=== PATIENT | male | born 1950 | race Caucasian/White ===

== ENCOUNTER 2016-09-06 13:11 | Outpatient (RCR) | payer MEDICARE ==
--- OUTSIDE RECORDS SUMMARY | 2016-08-09 12:42 | XMS REPORT | Continuity of Care Document ---
Author Author [facility] Organization [facility] Address Unknown Phone Unavailable Care Team Providers Care Lead Principal Technical Architect Name Role Phone ADIN ONEAL MD PCP Insurance Providers Payer Name Policy Number Subscriber Name Relationship Wps Medicare [id number] Lj Mckoy 18 Self / Same As Patient [facility] [id number] Lj Mckoy 18 Self / Same As Patient Advance Directives Directive Response Recorded Date/Time Advance Directives No 05/22/14 3:14pm Health Care Power of Engineering Lab Technician No 05/22/14 3:14pm Organ Donor No 05/22/14 3:14pm Resuscitation Status Full Code 05/22/14 3:14pm Problems Medical Problems Problem Onset Date Status Post-op pain Unknown Active Post-op pain Unknown Active Medications Medication Dose Route Sig Days/Qty Instructions Order Date Discontinued Date Status Escitalopram Oxalate 05/09/08 06/25/09 Discontinued Metoprolol Succinate 05/09/08 06/25/09 Discontinued Gabapentin 800 Mg PO THREE TIMES A DAY 06/25/09 09/12/13 Discontinued Docusate Sodium 100 Mg PO NEEDED 06/25/09 06/19/12 Discontinued Polyethylene Glycol 06/25/09 07/09/09 Discontinued Clonidine HCl 06/25/09 03/24/11 Discontinued Citalopram Hydrobromide 30 Mg PO DAILY TAKES 1 AND 1/2 (20 MG) TABLET 06/25/09 Active Metoprolol Tartrate 50 Mg PO TWICE A DAY 06/25/09 Active Amlodipine Besylate (Norvasc 5 Mg) 5 Mg PO DAILY 06/25/09 Active Acetaminophen With Codeine 06/25/09 07/09/09 Discontinued Trimethoprim/Sulfamethoxazole 1 Each PO TWICE A DAY 20 Qty 06/25/09 Discontinued Insulin Glulisine 7 Units SQ WITH MEALS 07/09/09 06/19/12 Discontinued Acetaminophen With Codeine 1 Tab PO NEEDED 07/09/09 06/19/12 Discontinued Polyethylene Glycol 1 Pkt PO NEEDED 07/09/09 06/19/12 Discontinued Insulin Glargine 20 Units SQ BEDTIME 03/25/11 Active Clopidogrel Bisulfate 75 Mg PO DAILY 06/11/11 05/24/14 Discontinued Insulin Human Lispro 6 Unit SQ THREE TIMES A DAY BEFORE MEALS Active Nystatin (Mycostatin Oral Suspension) 5 Ml PO FOUR TIMES DAILY 11/06/12 Discontinued Acetaminophen/Hydrocodone Bitart 1 - 2 Ea PO Q 4 - 6 HR PRN 30 Qty 05/0811/06/12 Discontinued Fluconazole 1 Each PO DAILY 10 Qty 07/06/12 11/06/12 Discontinued Linezolid 1 Tab PO TWICE A DAY 28 Qty 07/06/12 11/06/12 Discontinued Doxycycline Hyclate 200 Mg PO TWICE A DAY 10 Days 07/06/12 11/06/12 Discontinued Gabapentin 800 Mg PO THREE TIMES A DAY 09/12/13 Active Docusate Sodium 100 Mg PO DAILY 09/12/13 04/20/14 Discontinued Polyethylene Glycol 17 Gm PO BEDTIME PRN CONSTIPATION 05/23/14 Active Docusate Sodium 100 Mg PO DAILY PRN CONSTIPATION 05/23/14 Active [Prasugrel Hydrochloride] 10 Mg PO DAILY 05/24/14 Active Social History Social History Problem Response Recorded Date/Time Alcohol Use Occasionally Uses 04/20/2014 1:05pm Recreational Drug Use No 04/20/2014 1:05pm Smoking Status Former Smoker 05/22/2014 3:14pm Query Response Start Date Stop Date Smoking Status Former Smoker 05/22/2008 Hospital Discharge Instructions No hospital discharge instructions. Plan of Care Discharge Date 05/24/14 11:55am Disposition 01 HOME, SELF-CARE Instructions/Education Provided CARDIAC CATH DISCHARGE INSTRUC Forms Provided Follow-Up Fax Prescriptions See Medications Section Referrals (Unspecified) Care Plan and Goals to my office Monday morning Patient given a prescription for Effient Functional Status Query Response Date Recorded Patient Orientation Person Place Time Situation May 24, 2014 2:45pm Comprehension Ability Understands Concepts May 24, 2014 8:45am Allergies, Adverse Reactions, Alerts Allergen Type Severity Reaction Status Last Updated No Known Drug Allergies Active 05/09/08 Immunizations Name Given Type Date of Pneumonia Vaccine 05/29/12 Historical Date of Influenza Vaccine 06/08/13 Historical influenza, split (incl. purified surface antigen) 05/24/14 Administered influenza, split (incl. purified surface antigen) 05/24/14 Administered Vital Signs Acute Vital Signs Vital Response Date/Time Temperature (Fahrenheit) 98.4 degrees F (97.6 - 99.5) Temperature (Calculated Celsius) 36.91101 degrees C (36.4 - 37.5) Temperature Source Tympanic Pulse Rate (adult) 76 bpm (60 - 90) Respiratory Rate 20 bpm (12 - 24) O2 Sat by Pulse Oximetry 95 % (88 - 100) Blood Pressure 159/81 mm Hg Pain Pain Intensity 0 Height (Feet) 5 feet Height (Inches) 10.00 inches Height (Calculated Centimeters) 177.810447 cm Weight (Pounds) 218 pounds Weight (Ounces) 2.0 oz Weight (Calculated Grams) 92748.837 gm Weight (Calculated Kilograms) 98.138946 kilograms Calculated BMI 30.85 Results Test Source Date Result Interp. Ref. Range Comments Absolute Reticulocyte Count May 29, 2008 5:15am 34 10^3/uL N 22-82 Activated Partial Thromboplast Time April 20, 2014 2:07pm 27 SEC N 24- 35 Alanine Aminotransferase (ALT/SGPT) September 12, 2013 7:13am 47 U/L N 30- 65 Albumin September 12, 2013 7:13am 3.3 G/DL L 3.4-5.0 Alkaline Phosphatase September 12, 2013 7:13am 143 U/L H 50-136 Gio Test June 13, 2008 5:40am Yes-pos - Puncture site: R RADIALAllen's Test: POSITIVE Temperature: 101 Room Air: N Liters of O2: 40% Ventilator: Y Ammonia June 17, 2008 5:50am 36 UMOL/L - Amylase Level June 06, 2008 9:15am 24 U/L L 25-115 SPECIMEN IS FROM THE CJ DRAIN, NORMALS ARE FOR SERUM ONLY Anisocytosis June 04, 2008 6:05pm Slight - Arterial Blood Base Excess June 13, 2008 5:40am 3.5 MMOL/L H -2.5- 2.5 Puncture site: R RADIALAllen's Test: POSITIVE Temperature: 101 Room Air: N Liters of O2: 40% Ventilator: Y Arterial Blood HCO3 June 13, 2008 5:40am 27 MMOL/L N 23-27 Puncture site: R RADIALAllen's Test: POSITIVE Temperature: 101 Room Air: N Liters of O2: 40% Ventilator: Y Arterial Blood Oxygen Saturation June 13, 2008 5:40am 97 % N 94-100 Puncture site: R RADIALAllen's Test: POSITIVE Temperature: 101 Room Air: N Liters of O2: 40% Ventilator: Y Arterial Blood Partial Pressure CO2 June 13, 2008 5:40am 41 MMHG N 35 -45 Puncture site: R RADIALAllen's Test: POSITIVE Temperature: 101 Room Air: N Liters of O2: 40% Ventilator: Y Arterial Blood Partial Pressure O2 June 13, 2008 5:40am 90 MMHG N 79- 93 Puncture site: R RADIALAllen's Test: POSITIVE Temperature: 101 Room Air: N Liters of O2: 40% Ventilator: Y Arterial Blood Total CO2 June 13, 2008 5:40am 28.5 MMOL/L N 21.0- 31.0 Puncture site: R RADIALAllen's Test: POSITIVE Temperature: 101 Room Air: N Liters of O2: 40% Ventilator: Y Arterial Blood pH June 13, 2008 5:40am 7.45 H 7.37-7.43 Puncture site: R RADIALAllen's Test: POSITIVE Temperature: 101 Room Air: N Liters of O2: 40% Ventilator: Y Aspartate Amino Transf (AST/SGOT) September 12, 2013 7:13am 17 U/L N 15- 37 B-Type Natriuretic Peptide May 28, 2008 2:44am 1010.0 PG/ML H 5.0- 100.0 BUN/Creatinine Ratio April 20, 2014 2:07pm 10 - Band Neutrophils September 24, 2008 6:53am 4 % - Basophils # (Auto) April 20, 2014 2:07pm 0.0 10^3/uL N 0.0-0.1 Basophils % (Manual) September 24, 2008 6:53am 0 % - Basophils (%) (Auto) April 20, 2014 2:07pm 1 % N 0-10 Blood Gas Inspired Oxygen June 13, 2008 5:40am 40% - Puncture site : R RADIALAllen's Test: POSITIVE Temperature: 101 Room Air: N Liters of O2: 40% Ventilator: Y Blood Gas Patient Temperature June 13, 2008 5:40am 101.0 - Puncture site: R RADIALAllen's Test: POSITIVE Temperature: 101 Room Air: N Liters of O2: 40% Ventilator: Y Blood Gas Puncture Site June 13, 2008 5:40am Rt rad - Puncture site: R RADIALAllen's Test: POSITIVE Temperature: 101 Room Air: N Liters of O2: 40% Ventilator: Y Blood Gas Ventilator Setting June 13, 2008 5:40am Yes - Puncture site: R RADIALAllen's Test: POSITIVE Temperature: 101 Room Air: N Liters of O2: 40% Ventilator: Y Blood Urea Nitrogen April 20, 2014 2:07pm 10 MG/DL N 7-18 Calcium Level April 20, 2014 2:07pm 9.9 MG/DL N 8.5-10.1 Carbon Dioxide Level April 20, 2014 2:07pm 22 MMOL/L N 21-32 Carboxyhemoglobin April 30, 2008 4:00pm 11.3 % H 0.5-2.5 REFERENCE RANGE=0.5% - 2.5% SMOKERS=0.5% - 6.0% TOXIC LEVELS=>10% Chloride Level April 20, 2014 2:07pm 106 MMOL/L N 98-107 Cholesterol Level March 27, 2011 6:20am 162 MG/DL N -200 Creatinine April 20, 2014 2:07pm 1.05 MG/DL N 0.60-1.30 D-Dimer May 27, 2008 10:00am 4.72 UG/ML H 0.00-0.49 Direct Bilirubin May 27, 2008 10:00am 2.6 MG/DL H 0.0-0.30 Eosinophils # (Auto) April 20, 2014 2:07pm 0.2 10^3/uL N 0.0-0.3 Eosinophils % (Manual) September 24, 2008 6:53am 2 % - Eosinophils (%) (Auto) April 20, 2014 2:07pm 3 % N 0-10 Fibrinogen May 27, 2008 10:00am 617 MG/DL H 221-496 Glucose Level April 20, 2014 2:07pm 97 MG/DL N 70-105 HDL Cholesterol March 27, 2011 6:20am 38 MG/DL N 35-60 Haptoglobin May 28, 2008 11:37am 208.7 h MG/DL - Hematocrit April 20, 2014 2:07pm 41 % N 40-54 Hemoglobin April 20, 2014 2:07pm 14.0 G/DL N 13.3-17.7 Hemoglobin A1c November 19, 2013 1:00pm 7.3 % H 4.5-6.2 Comments to Armored Machine Operator: lian 18Specimen Comment: drawn by rn Indirect Bilirubin May 27, 2008 10:00am 0.9 MG/DL - Iron Level June 27, 2008 6:30am 65 UG/DL N 50-175 LDL Cholesterol March 27, 2011 6:20am 83 MG/DL N 0-129 Lactate Dehydrogenase May 30, 2008 5:30am 185 U/L N 100-190 Lactic Acid Level June 08, 2008 5:30am 0.9 MMOL/L N 0.4-2.0 Lipase June 06, 2008 9:15am 141 U/L N 114-286 SPECIMEN IS FROM CJ DRAIN,NORMALS ARE FOR SERUM ONLY Lymphocytes # (Auto) April 20, 2014 2:07pm 1.4 X 10^3 N 1.0-4.0 Lymphocytes % (Manual) September 24, 2008 6:53am 13 % - Lymphocytes (%) (Auto) April 20, 2014 2:07pm 19 % N 12-44 Macrocytosis June 04, 2008 6:05pm Slight - Magnesium Level June 26, 2012 5:55am 2.0 MG/DL N 1.8-2.4 Mean Corpuscular Hemoglobin April 20, 2014 2:07pm 32 PG N 25-34 Mean Corpuscular Hemoglobin Concent April 20, 2014 2:07pm 35 G/DL N 32- 36 Mean Corpuscular Volume April 20, 2014 2:07pm 92 FL N 80-99 Mean Platelet Volume April 20, 2014 2:07pm 9.7 FL N 7.4-10.4 Monocytes # (Auto) April 20, 2014 2:07pm 0.7 X 10^3 N 0.0-1.0 Monocytes % (Manual) September 24, 2008 6:53am 10 % - Monocytes (%) (Auto) April 20, 2014 2:07pm 10 % N 0-12 Neutrophils # (Auto) April 20, 2014 2:07pm 5.1 X 10^3 N 1.8-7.8 Neutrophils % (Manual) September 24, 2008 6:53am 71 % - Neutrophils (%) (Auto) April 20, 2014 2:07pm 69 % N 42-75 Nucleated Red Blood Cells June 04, 2008 6:05pm 6 - Percent Reticulocyte Count May 29, 2008 5:15am 1.01 % N 0.50-2.40 Phosphorus Level June 09, 2008 5:50am 5.2 MG/DL H 2.5-4.9 Platelet Count April 20, 2014 2:07pm 324 10^3/uL N 130-400 Poikilocytosis May 27, 2008 5:25am Slight - Polychromasia June 04, 2008 6:05pm Slight - Potassium Level April 20, 2014 2:07pm 4.4 MMOL/L N 3.6-5.0 Prealbumin May 31, 2008 9:30am 11.2 MG/DL L 18.0-35.7 Has specimen been collected/obtained? YComments to Armored Machine Operator: USE THIS AM BLOOD Prostate Specific Antigen August 10, 2009 10:15am 0.69 NG/ML - PRINT TO CCRPT5 NOW!!!! Prothromb Time International Ratio November 06, 2012 8:32am 0.8 N 0.8-1.4 INTERPRETIVE DATASUGGESTED THERAPEUTIC RANGE FOR INR'S: VENOUS THROMBOSIS, PULMONARY EMBOLISM, OR PREVENTION OF SYSTEMIC EMBOLISM (EG. IN ATRIAL FIBRILLATION): 2.0 - 3.0 MECHANICAL PROSTHETIC HEART VALVES: 2.5 - 3.5* *NOTE: INR'S UP TO 4.5 MAY BE NECESSARY IN SELECTED GROUPS OF HIGH RISK PATIENTS. [employer] CONSENSUS CONFERENCE ON ANTITHROMBOTIC THERAPY (2000). Prothrombin Time April 20, 2014 2:07pm 12.7 SEC N 12.2-14.7 Random Tobramycin Level June 12, 2008 7:28am 10.0 MG/L - INTERPRETIVE DATADESIRED AMINOGLYCOSIDE LEVELS DEPEND VERY MUCH ON THE ORGANISM UNDER TREATMENT AND THE ORGAN BEING TREATED. ONCE DAILY DOSING (ODD) IS ADVISED FOR MOST INDICATIONS. MULTIPLE DAILY DOSING (MDD) MAY BE OPTIMAL FOR ENDOCARDITIS. USUAL RECOMMENDED LEVELS FOR TOBRAMYCIN ARE: ODD PEAK (30 MIN AFTER INFUSION COMPLETE) 16-24 MG/L TROUGH (30 MIN BEFORE INFUSION STARTED)=<1 MG/L MDD PEAK (30 MIN AFTER INFUSION COMPLETE) 4-10 MG/L TROUGH (30 MIN BEFORE INFUSION STARTED) 1-2 MG/L REF: WEI FONTANA, HUSSEIN BARNHART. ANTIBACTERIAL THERAPY: ONCE-DAILY DOSING OF AMINOGLYCOSIDE ANTIBIOTICS. INFECT DIS CLIN [place] AM. 2000; 14(2):475-587; WEI DEY, MARY LOU RC ET.AL. THE [place] GUIDE TO ANTIMICROBIAL THERAPY. [address]TH ED. SHANE THOMPSON: ANTIMICROBIAL [employer]ER[employer] 2004:73.) 06/10/2005 Reactive Lymphocytes June 04, 2008 6:05pm 4 % - Red Blood Count April 20, 2014 2:07pm 4.42 10^6/uL N 4.35-5.85 Red Cell Distribution Width April 20, 2014 2:07pm 12.4 % N 10.0-14.5 Sodium Level April 20, 2014 2:07pm 140 MMOL/L N 135-145 Spherocytes May 27, 2008 5:25am Slight - Thyroid Stimulating Hormone (TSH) November 24, 2010 1:15pm 2.49 UIU/ML N 0.34-5.60 Total Bilirubin September 12, 2013 7:13am 0.3 MG/DL N 0.0-1.0 Total Protein September 12, 2013 7:13am 7.6 G/DL N 6.4-8.2 Triglycerides Level March 27, 2011 6:20am 205 MG/DL H 30.0-150.0 Troponin I May 31, 2008 9:30am < 0.10 NG/ML 0.00-0.10 Comments to Armored Machine Operator: PLEASE USE BLOOD ALREADY DRAWN Urine Amorphous Sediment November 06, 2012 8:43pm MOD PETE PHOSPHATE /LPF H - Has specimen been collected/obtained? YSpecimen Description VOID Urine Bacteria November 06, 2012 8:43pm FEW /HPF H - Has specimen been collected/obtained? YSpecimen Description VOID Urine Bilirubin November 06, 2012 8:43pm NEGATIVE - Has specimen been collected/obtained? YSpecimen Description VOID Urine Casts November 06, 2012 8:43pm NONE /LPF - Has specimen been collected/obtained? YSpecimen Description VOID Urine Clarity November 06, 2012 8:43pm very cloudy - Has specimen been collected/obtained? YSpecimen Description VOID Urine Coarse Granular Casts June 09, 2008 9:50pm Rare H - Has specimen been collected/obtained? YSpecimen Description CLEAN CATCH Urine Color November 06, 2012 8:43pm BROWN H - Has specimen been collected /obtained? YSpecimen Description VOID Urine Crystals November 06, 2012 8:43pm PRESENT /LPF H - Has specimen been collected/obtained? YSpecimen Description VOID Urine Culture Indicated November 06, 2012 8:43pm YES - Has specimen been collected/obtained? YSpecimen Description VOID Urine Glucose (UA) November 06, 2012 8:43pm NEGATIVE - Has specimen been collected/obtained? YSpecimen Description VOID Urine Ketones November 06, 2012 8:43pm TRACE H - Has specimen been collected/obtained? YSpecimen Description VOID Urine Leukocyte Esterase November 06, 2012 8:43pm 1+ H - Has specimen been collected/obtained? YSpecimen Description VOID Urine Mucus November 06, 2012 8:43pm NEGATIVE /LPF - Has specimen been collected/obtained? YSpecimen Description VOID Urine Nitrite November 06, 2012 8:43pm POSITIVE H - Has specimen been collected/obtained? YSpecimen Description VOID Urine Protein November 06, 2012 8:43pm 3+ H - Has specimen been collected/ obtained? YSpecimen Description VOID Urine RBC November 06, 2012 8:43pm RARE /HPF - MICROSCOPIC EXAM ON UNSPUN SPECIMEN Urine Random Chloride June 15, 2008 1:40pm 82 MMOL/L L 110-250 Has specimen been collected/obtained? Y Urine Random Potassium June 15, 2008 1:40pm 50 MMOL/L N 25-125 Has specimen been collected/obtained? Y Urine Random Sodium June 15, 2008 1:40pm 64 MMOL/L N 50-200 Has specimen been collected/obtained? Y Urine Specific [place] November 06, 2012 8:43pm 1.010 L - Has specimen been collected/obtained? YSpecimen Description VOID Urine Squamous Epithelial Cells November 06, 2012 8:43pm RARE /HPF - Has specimen been collected/obtained? YSpecimen Description VOID Urine Urobilinogen November 06, 2012 8:43pm 4 MG/DL H - Has specimen been collected/obtained? YSpecimen Description VOID Urine WBC November 06, 2012 8:43pm 0-2 /HPF - Has specimen been collected/obtained? YSpecimen Description VOID Urine pH November 06, 2012 8:43pm 7 - DIPSTICK RESULTS MAY NOT BE ACCURATE DUE TO COLORINTERFERENCE VLDL Cholesterol March 27, 2011 6:20am 41 MG/DL H 5-40 Vancomycin Level Trough June 08, 2008 6:00pm 18.0 MCG/ML N 10-20 White Blood Count April 20, 2014 2:07pm 7.5 10^3/uL N 4.3-11.0 Pathology Consult Specimen May 26, 2008 10:41am See report - Glucometer April 12, 2014 6:51am 143 MG/DL H 70-110 Lab Scanned Report July 04, 2012 1:11pm Transfusion Reaction Form [id number] - Smear Scan June 04, 2008 5:20am Yes - SLIDE SCANNED FOR NRBC. 3 PER 100 WBC NOTED. VERIFIED BY SCAN OF SMEAR. Estimat Glomerular Filtration Rate April 20, 2014 2:07pm > 60 - GFR INTERPRETIVE DATA UNITS FOR ESTIMATED GFR (eGFR): mL/min/1.73 M2 REFERENCE RANGE FOR ESTIMATED GFR (eGFR) eGFR NORMAL eGFR >60 MODERATELY DECREASED eGFR 30-59 SEVERLY DECREASED eGFR 15-29 KIDNEY FAILURE <15 (OR DIALYSIS) Blood Morphology Comment September 24, 2008 6:53am Normal - Creatine Kinase May 26, 2008 10:28pm 21 mg/dl N 21-170 4+ LIPEMIC Stool Occult Blood Immunoassay June 29, 2008 3:30pm Positive H - Has specimen been collected/obtained? Y Urine RBC (Auto) November 06, 2012 8:43pm 4+ H - Has specimen been collected/obtained? YSpecimen Description VOID INR Comment April 20, 2014 2:07pm 1.0 N 0.8-1.4 INTERPRETIVE DATASUGGESTED THERAPEUTIC RANGE FOR INR'S: VENOUS THROMBOSIS, PULMONARY EMBOLISM, OR PREVENTION OF SYSTEMIC EMBOLISM (EG. IN ATRIAL FIBRILLATION): 2.0 - 3.0 MECHANICAL PROSTHETIC HEART VALVES: 2.5 - 3.5* *NOTE: INR'S UP TO 4.5 MAY BE NECESSARY IN SELECTED GROUPS OF HIGH RISK PATIENTS. [employer] CONSENSUS CONFERENCE ON ANTITHROMBOTIC THERAPY (2000). Blood Culture Peripheral-Rt Ac April 11, 2014 7:28pm No growth Gram Stain Abdominal Fluid July 02, 2012 1:30pm Clostridium difficile Toxin A&B (M) Stool September 24, 2008 5:00pm Gram Stain Other-Cj Drain September 25, 2008 1:50pm MRSA Screen Nasal April 10, 2014 8:41am MRSA not isolated Urine Culture Urine-Voided Urine November 06, 2012 8:43pm NO GROWTH Gram Stain Body Site, Not Otherwise Spec.-Other July 23, 2012 4:15pm Procedures No known history of procedures. Encounters Encounter Location Date/Time Discharged Inpatient Via [facility] 05/22/14 5:53pm Discharged Recurring Via [facility] 02/19/14 1:42pm
[2016-08-09 12:59] VITALS: BP 140/78
[~2016-09-06] VITALS: Ht 175.3 cm; Wt 97.5 kg
[~2016-09-06 13:11] MED LIST: ACET1TAB12; ACET1TAB12 PO; AMLO5TAB2 PO; CITA20TA4 PO; CLON0.3T4; CLPD75T PO; DCS100C PO; DOCU100T7 PO; DOXY150T9 PO; ESCT10T; FLC100T1 PO; GABA800T PO; GBPN400C PO; HYDR-3583 PO; INSASP10V SQ; INSU100I10 SQ; INSU100I11 SQ; LNZ600T PO; MTP25TSR; MTP50T PO; NYST1000 PO; PEG250PW PO; POLY119P; POLY17PO23 PO; Prasugrel Hydrochloride PO; SULF1TAB35 PO
== END 2016-09-06 13:30 | disposition home or self-care (01) ==
LOC: SDC 13:11
PROVIDERS: ATTEND Internal Medicine
DX: I87.2 Venous insufficiency (chronic) (peripheral) (principal); Z45.2 Encounter for adjustment and management of vascular access device
CPT/HCPCS: 96523

== ENCOUNTER 2016-09-06 13:28 | Outpatient (RCR) | payer MEDICARE ==
[~2016-09-06] VITALS: Ht 175.3 cm; Wt 97.5 kg
--- OUTSIDE RECORDS SUMMARY | 2016-09-06 13:32 | XMS REPORT | Continuity of Care Document ---
Author Author [facility] Organization [facility] Address Unknown Phone Unavailable Care Team Providers Care Stacker Operator Name Role Phone ADIN ONEAL MD PCP Insurance Providers Payer Name Policy Number Subscriber Name Relationship Wps Medicare [id number] Lj Mckoy 18 Self / Same As Patient [facility] [id number] Lj Mckoy 18 Self / Same As Patient Advance Directives Directive Response Recorded Date/Time Advance Directives No 05/22/14 3:14pm Health Care Power of Surgical Elastic Knitter Hand Frame No 05/22/14 3:14pm Organ Donor No 05/22/14 [...] F (97.6 - 99.5) Temperature (Calculated Celsius) 36.39495 degrees C (36.4 - 37.5) Temperature Source Tympanic Pulse Rate (adult) 76 bpm (60 - 90) Respiratory Rate 20 bpm (12 - 24) O2 Sat by Pulse Oximetry 95 % (88 - 100) Blood Pressure 159/81 mm Hg Pain Pain Intensity 0 Height (Feet) 5 feet Height (Inches) 10.00 inches Height (Calculated Centimeters) 177.574115 cm Weight (Pounds) 218 pounds Weight (Ounces) 2.0 oz Weight (Calculated Grams) 54092.837 gm Weight (Calculated Kilograms) 98.225639 kilograms Calculated BMI 30.85 Results Test Source [...] 1:00pm 7.3 % H 4.5-6.2 Comments to Level Vial Inspector And Tester: lian 18Specimen Comment: drawn by rn Indirect [...] 18.0-35.7 Has specimen been collected/obtained? YComments to Level Vial Inspector And Tester: USE THIS AM BLOOD Prostate Specific Antigen [...] SELECTED GROUPS OF HIGH RISK PATIENTS. [employer] CONSENSUS CONFERENCE ON [...] WEI DEY, MARY LOU RC ET.AL. THE [place] GUIDE TO ANTIMICROBIAL THERAPY. [address]TH ED. SHANE [...] 9:30am < 0.10 NG/ML 0.00-0.10 Comments to Level Vial Inspector And Tester: PLEASE USE BLOOD ALREADY DRAWN Urine Amorphous [...] Has specimen been collected/obtained? Y Urine Specific [place] November 06, 2012 8:43pm 1.010 L - [...] July 04, 2012 1:11pm Transfusion Reaction Form [id number] - Smear Scan June 04, 2008 5:20am [...] SELECTED GROUPS OF HIGH RISK PATIENTS. [employer] [employer] CONSENSUS CONFERENCE ON [...] Encounters Encounter Location Date/Time Discharged Inpatient Via [facility] 05/22/14 5:53pm Discharged Recurring Via [facility] 02/19/14 1:42pm
[2016-09-06 13:39] VITALS: BP 134/70
[2016-09-15] MEDS ORDERED: MUPIROCIN 2% OINT 22 GM (BACTROBAN) TUBE ONE (08:28)
[2016-10-14] MEDS ORDERED: MIDAZOLAM SYRUP (VERSED) 10MG/5ML UDC PO ONE (07:37)
[2016-10-14] MEDS ORDERED: APAP 325 MG/10.15 ML LIQ (TYLENOL) UDC ONE (07:37)
== END 2016-09-06 13:30 | disposition home or self-care (01) ==
LOC: SDC 13:28
PROVIDERS: ATTEND Family Medicine
DX: Z45.2 Encounter for adjustment and management of vascular access device (principal)
CPT/HCPCS: 96523

== ENCOUNTER → 2016-10-25 | Outpatient (CLI) | payer MEDICARE ==
[~2016-10-25] VITALS: Ht 175.3 cm; Wt 97.5 kg
[~2016-10-25] MED LIST changes: +CYCL10TA9 PO; +HYOS0.1283 SL; +ONDA8TAB13 PO; +OXYC-188 PO; +TRAM50TA2 PO
--- OUTSIDE RECORDS SUMMARY | 2016-10-25 12:53 | XMS REPORT | Continuity of Care Document ---
Author Author [facility] Organization [facility] Address Unknown Phone Unavailable Care Team Providers Care Post Secondary Professional Name Role Phone ADIN ONEAL MD PCP Insurance Providers Payer Name Policy Number Subscriber Name Relationship Wps Medicare [id number] Lj Mckoy 18 Self / Same As Patient [facility] [id number] Lj Mckoy 18 Self / Same As Patient Advance Directives Directive Response Recorded Date/Time Advance Directives No 05/22/14 3:14pm Health Care Power of Almond Cutting Machine Tender No 05/22/14 3:14pm Organ Donor No 05/22/14 [...] F (97.6 - 99.5) Temperature (Calculated Celsius) 36.25307 degrees C (36.4 - 37.5) Temperature Source Tympanic Pulse Rate (adult) 76 bpm (60 - 90) Respiratory Rate 20 bpm (12 - 24) O2 Sat by Pulse Oximetry 95 % (88 - 100) Blood Pressure 159/81 mm Hg Pain Pain Intensity 0 Height (Feet) 5 feet Height (Inches) 10.00 inches Height (Calculated Centimeters) 177.165259 cm Weight (Pounds) 218 pounds Weight (Ounces) 2.0 oz Weight (Calculated Grams) 21556.837 gm Weight (Calculated Kilograms) 98.698428 kilograms Calculated BMI 30.85 Results Test Source [...] 1:00pm 7.3 % H 4.5-6.2 Comments to Dot Compliance Manager: lian 18Specimen Comment: drawn by rn Indirect [...] 18.0-35.7 Has specimen been collected/obtained? YComments to Dot Compliance Manager: USE THIS AM BLOOD Prostate Specific Antigen [...] SELECTED GROUPS OF HIGH RISK PATIENTS. [employer] [employer] CONSENSUS CONFERENCE ON [...] WEI DEY, MARY LOU RC ET.AL. THE [place] GUIDE TO ANTIMICROBIAL THERAPY. [address]TH ED. SHANE [...] 9:30am < 0.10 NG/ML 0.00-0.10 Comments to Dot Compliance Manager: PLEASE USE BLOOD ALREADY DRAWN Urine Amorphous [...] Has specimen been collected/obtained? Y Urine Specific [place] November 06, 2012 8:43pm 1.010 L - [...] July 04, 2012 1:11pm Transfusion Reaction Form [id number] - Smear Scan June 04, 2008 5:20am [...] SELECTED GROUPS OF HIGH RISK PATIENTS. [employer] [employer] CONSENSUS CONFERENCE ON [...] Encounters Encounter Location Date/Time Discharged Inpatient Via [facility] 05/22/14 5:53pm Discharged Recurring Via [facility] 02/19/14 1:42pm
[2016-10-25 13:13] VITALS: BP 177/93
== END ==
LOC: SDC 12:49
PROVIDERS: ATTEND Family Medicine
DX: Z45.2 Encounter for adjustment and management of vascular access device (principal)
CPT/HCPCS: 96523

== ENCOUNTER 2016-11-15 11:09 | Emergency (ER) | payer MEDICARE ==
[~2016-11-15] VITALS: Ht 177.8 cm; Wt 98.9 kg
[~2016-11-15 11:09] MED LIST changes: -CYCL10TA9 PO; -HYOS0.1283 SL; -ONDA8TAB13 PO; -OXYC-188 PO; -TRAM50TA2 PO
--- NOTE | 2016-11-15 12:52 | ED Back Pain ---
General Chief Complaint: Back Problems Stated Complaint: RIGHT LOWER BACK PAIN Nursing Triage Note: pt reports r lower back pain with no known injury since 10-12 days ago. Nursing Sepsis Screen: No Definite Risk Source of Information: Patient Exam Limitations: No Limitations History of Present Illness Time Seen by Provider: 12:52 Initial Comments 66-year-old male patient presents to the emergency Department with reports of right low back pain for approximately 10-12 days. Patient states he now has some pain radiating around the right flank. Denies known injury. Denies a history of kidney stones. Location: Paraspinous Muscles (right low back) Timing/Duration: Other (10-12 days) Pain/Injury Location: Back Radiation: Other (right flank) Method of Injury: Unknown Modifying Factors: Worse With Movement Associated Symptoms: No muscle spasms, No fever, No weakness, No sensory/motor loss, lower back pain, No loss of bladder control, No loss of bowel control Allergies and Home Medications Allergies Coded Allergies: No Known Drug Allergies (Verified , 05/09/08) Home Medications Amlodipine Besylate 5 Mg Tablet, 5 MG PO DAILY, (Reported) Citalopram Hydrobromide 20 Mg Tablet, 30 MG PO DAILY, (Reported) TAKES 1 AND 1/2 (20 MG) TABLET Cyclobenzaprine HCl 10 Mg Tablet, 10 MG PO Q8H PRN for SPASMS, #14 Ref 0 Prescribed by: BELLE STALLINGS on 11/15/16 1417 Docusate Sodium 100 Mg Capsule, 100 MG PO DAILY PRN for CONSTIPATION, (Reported) Gabapentin 800 Mg Tablet, 800 MG PO TID, (Reported) Hyoscyamine Sulfate 0.125 Mg Tab.subl, 0.125 MG SL Q6H PRN for SPASMS, #20 Ref 0 Prescribed by: BELLE STALLINGS on 11/15/16 1404 Insulin Glargine,Hum.rec.anlog 300 Unit/3 Ml Insuln.pen, 20 UNITS SQ HS, ( Reported) Insulin Human Lispro 100 U/Ml Vial, 6 UNIT SQ TIDAC, (Reported) Metoprolol Tartrate 50 Mg Tab, 50 MG PO BID, (Reported) Ondansetron 8 Mg Tab.rapdis, 8 MG PO Q6H PRN for PAIN, #10 Ref 0 Prescribed by: BELLE STALLINGS on 11/15/16 1416 Oxycodone HCl/Acetaminophen 1 Each Tablet, 1 EACH PO Q4H PRN for PAIN, #14 Ref 0 Prescribed by: BELLE STALLINGS on 11/15/16 1416 Polyethylene Glycol 17 Gm Pack, 17 GM PO HS PRN for CONSTIPATION, (Reported) Constitutional: No chills, No fever, No malaise Respiratory: no symptoms reported Cardiovascular: no symptoms reported Gastrointestinal: No abdominal pain, No constipation, No diarrhea, No loss of appetite, No nausea, No vomiting Genitourinary: No decreased output, No dysuria, No frequency, No hematuria, pain (right flank pain) Musculoskeletal: see HPI, back pain, No joint pain Skin: no symptoms reported Psychiatric/Neurological: No Symptoms Reported (denies worsening neuropathy symptoms), Pre-Existing Deficit (peripheral neuropathy) All Other Systems Reviewed Negative Unless Noted: Yes (Negative excepted noted.) Past Zqfemoh-Udxrda-Tphihz Hx Patient Social History Alcohol Use: Regular Use Recreational Drug Use: No Smoking Status: Current Everyday Smoker Type Used: Cigarettes Former Smoker/When Quit: May 22, 2008 Recent Foreign Travel: No Contact w/Someone Who Travel: No Recent Infectious Disease Expo: No Recent Hopitalizations: Yes (3 YRS AGO FOR ARDS, RUTPURED DIVIRTICULI) Immunizations Up To Date Date of Pneumonia Vaccine: May 29, 2012 Date of Influenza Vaccine: May 13, 2015 Surgeries HX Surgeries: Yes (LEFT LEG STENTS/BYPASS, COLECTOMY, COLOSTOMY REVERSAL) Surgeries: Appendectomy, Eye Surgery, Gallbladder Respiratory Hx Respiratory Disorders: No Cardiovascular Hx Cardiac Disorders: Yes Cardiac Disorders: Hypertension, Peripheral Vascular Neurological Hx Neurological Disorders: Yes Neurological Disorders: Neuropathy Reproductive System Hx Reproductive Disorders: No Genitourinary Hx Genitourinary Disorders: Yes (acute renal failure 9 years ago) Genitourinary Disorders: Renal Failure Gastrointestinal Hx Gastrointestinal Disorders: Yes (HX DIVERTICULITIS, 3 YRS AGO FOR ARDS, RUTPURED DIVIRTICULI) Gastrointestinal Disorders: Diverticulosis Musculoskeletal Hx Musculoskeletal Disorders: No Musculoskeletal Disorders: Chronic Back Pain Endocrine Hx Endocrine Disorders: Yes Endocrine Disorders: Diabetes, Insulin dep HEENT HX ENT Disorders: Yes (FRONT TOOTH FALSE) Cancer Hx Cancer: No Psychosocial Hx Psychiatric Problems: Yes Behavioral Health Disorders: Depression Integumentary HX Skin/Integumentary Disorder: No Blood Transfusions Hx Blood Disorders: Yes (INTERNAL BLEEDING AFTER SURGERY IN [facility] 3 YRS AGO) Reviewed Nursing Assessment Reviewed/Agree w Nursing PMH: Yes Family Medical History Significant Family History: No Pertinent Family Hx Physical Exam Vital Signs Vital Sign - Last 12Hours 11/15/16 12:26 Temp 97.8 Pulse 69 Resp 20 B/P (MAP) 146/78 Pulse Ox 93 Capillary Refill : Less Than 3 Seconds General Appearance: No Apparent Distress, WD/WN HEENT: PERRL/EOMI, Pharynx Normal Neck: Normal Inspection, Supple Cardiovascular: Regular Rate, Rhythm, No Edema, No Murmur, Normal Peripheral Pulses Respiratory: Lungs Clear, Normal Breath Sounds, No Respiratory Distress Peripheral Pulses: 2+ Dorsalis Pedis (R), 2+ Left Dors-Pedis (L) Gastrointestinal: Normal Bowel Sounds, No Organomegaly, No Pulsatile Mass, Soft , No Distended, No Guarding, No Rebound, Tenderness (mild right flank tenderness ) Back: Normal Inspection, No CVA Tenderness (L), CVA Tenderness (R), No Decreased Range of Motion, No Vertebral Tenderness Extremity: Normal Capillary Refill, Normal Inspection, Non Tender Neurologic/Psychiatric: Alert, Oriented x3, No Motor/Sensory Deficits, Normal Mood/Affect Skin: Normal Color, Warm/Dry Progress/Results/Core Measures Results/Orders Lab Results Laboratory Tests Test 11/15/16 12:43 Range/Units Urine Color YELLOW Urine Clarity CLEAR Urine pH 6 5-9 Urine Specific [place] 1.020 1.016-1.022 Urine Protein 2+ H NEGATIVE Urine Glucose (UA) 1+ H NEGATIVE Urine Ketones NEGATIVE NEGATIVE Urine Nitrite NEGATIVE NEGATIVE Urine Bilirubin NEGATIVE NEGATIVE Urine Urobilinogen 8 H NORMAL MG/DL Urine Leukocyte Esterase 1+ H NEGATIVE Urine RBC (Auto) NEGATIVE NEGATIVE Urine RBC NONE /HPF Urine WBC 2-5 /HPF Urine Squamous Epithelial Cells RARE /HPF Urine Crystals NONE /LPF Urine Bacteria NEGATIVE /HPF Urine Casts NONE /LPF Urine Mucus NEGATIVE /LPF Urine Culture Indicated NO My Orders Orders - BELLE STALLINGS Ua Culture If Indicated (11/15/16 12:40) Hydrocodone/Apap 10/325 Tablet (Lortab 1 (11/15/16 13:06) Ct Abdomen/Pelvis Wo (11/15/16 13:13) Vital Signs/I&O Vital Sign - Last 12Hours 11/15/16 11/15/16 12:26 14:27 Temp 97.8 97.8 Pulse 69 72 Resp 20 20 B/P (MAP) 146/78 Pulse Ox 93 95 Blood Pressure Mean: 100 Diagnostic Imaging Diagonstic Imaging: CT Plain Films/CT/US/NM/MRI: abdomen, pelvis Comments FINDINGS: A soft tissue nodule in the right anterior lung base has increased from 13-19 mm. Fatty infiltration is seen in the liver with some sparing of the left lobe of the liver. Liver is somewhat inhomogeneous. The spleen, pancreas, adrenal glands and kidneys appear normal. There is circumferential thickening of the urinary bladder possible cystitis. The prostate gland appears normal. No hernias are present. There is no ascites, free air or abnormal adenopathy. The bowel anastomosis is present in the sigmoid colon. The bowel is otherwise unremarkable. The appendix is not identified and may be absent. Mild arterial sclerosis is present. There are no aneurysms. Bone windows demonstrate no evidence of metastatic disease. Some degenerative changes are present in the spine. IMPRESSION: 1. There are mild degenerative changes in the spine. 2. A right lower lung nodule has increased from 13-19 mm since 2011. 3. There is a 2 mm calculi in the right kidney without inflammation or hydronephrosis. 4. There is some fatty infiltration of the liver with inhomogeneous liver due to the fatty infiltration. Dictated by: Dictated on workstation # [id number] Reviewed: Reviewed by Me (radiology report reviewed by me) Departure Communication Progress Notes Laboratory and diagnostic findings discussed with the patient. Patient reports improvement in symptoms with medications. Plan for discharge to home. All return precautions were discussed with the patient as described in the discharge instructions of this report. Patient voices understanding and agrees with the treatment plan. Impression Impression: Primary Impression: Back pain Qualified Codes: M54.5 - Low back pain Additional Impressions: Pulmonary nodule, right Nephrolithiasis Disposition: HOME, SELF-CARE Condition: Improved Departure-Patient Inst. Decision time for Depature: 14:00 Referrals: SUSAN HURST DO (PCP/Family) Primary Care Physician Patient Instructions: Kidney Stones (DC), Low Back Pain (DC) Add. Discharge Instructions: All discharge instructions reviewed with patient and/or family. Voiced understanding. Medications as instructed. Continue usual home medications. Follow-up with Dr. Hurst as an outpatient for recheck and possible need of repeat CT scan to further evaluate the lung nodule, call for appointment time. Return to the emergency department for worsened pain, numbness, weakness, bowel incontinence, bladder incontinence, blood in the urine, inability to urinate, fever, abdominal pain, or any other concerns. Scripts Cyclobenzaprine HCl (Cyclobenzaprine HCl) 10 Mg Tablet 10 MG PO Q8H Y for SPASMS, #14 TAB 0 Refills Prov: BELLE STALLINGS 11/15/16 Ondansetron (Ondansetron Odt) 8 Mg Tab.rapdis 8 MG PO Q6H Y for PAIN, #10 TAB 0 Refills Prov: BELLE STALLINGS 11/15/16 Oxycodone HCl/Acetaminophen (Endocet 5-325 Tablet) 1 Each Tablet 1 EACH PO Q4H Y for PAIN, #14 TAB 0 Refills Prov: BELLE STALLINGS 11/15/16 Hyoscyamine Sulfate (Levsin-Sl) 0.125 Mg Tab.subl 0.125 MG SL Q6H Y for SPASMS, #20 TAB 0 Refills Prov: BELLE STALLINGS 11/15/16 BELLE STALLINGS Nov 15, 2016 12:52
[2016-11-15 12:56] LABS: BILIRUBIN,URINE NEGATIVE (NEGATIVE); KETONES,URINE NEGATIVE (NEGATIVE); LEUKOCYTE ESTERASE ,URINE 1+ (NEGATIVE); NITRITE,URINE NEGATIVE (NEGATIVE); PH,URINE 6 (5-9); PROTEIN,URINE 2+ (NEGATIVE); UROBILINOGEN,URINE 8 MG/DL (NORMAL)
[2016-11-15 13:06] LABS: SQUAMOUS EPITHELIAL CELL,UR RARE /HPF
[2016-11-15] MEDS ORDERED: HYDROcodone/APAP 10 MG/325 MG (LORTAB) TAB PO STA (13:06)
--- NOTE | 2016-11-15 13:43 | Diagnostic Imaging Report ---
PROCEDURE: CT abdomen and pelvis without contrast. TECHNIQUE: Multiple contiguous axial images were obtained through the abdomen and pelvis without the use of intravenous contrast. INDICATION: Lower posterior back pain, history of renal failure. Comparison study: CT abdomen and pelvis from 07/02-. FINDINGS: A soft tissue nodule in the right anterior lung base has increased from 13-19 mm. Fatty infiltration is seen in the liver with some sparing of the left lobe of the liver. Liver is somewhat inhomogeneous. The spleen, pancreas, adrenal glands and kidneys appear normal. There is circumferential thickening of the urinary bladder possible cystitis. The prostate gland appears normal. No hernias are present. There is no ascites, free air or abnormal adenopathy. The bowel anastomosis is present in the sigmoid colon. The bowel is otherwise unremarkable. The appendix is not identified and may be absent. Mild arterial sclerosis is present. There are no aneurysms. Bone windows demonstrate no evidence of metastatic disease. Some degenerative changes are present in the spine. IMPRESSION: 1. There are mild degenerative changes in the spine. 2. A right lower lung nodule has increased from 13-19 mm since 2011. 3. There is a 2 mm calculi in the right kidney without inflammation or hydronephrosis. 4. There is some fatty infiltration of the liver with inhomogeneous liver due to the fatty infiltration. Dictated by: Dictated on workstation # [id number]
[2016-11-15] MEDS ORDERED: HYOS0.1283 SL (14:04)
[2016-11-15] MEDS ORDERED: TRAM50TA2 PO (14:04)
[2016-11-15] MEDS ORDERED: ONDA8TAB13 PO (14:16)
[2016-11-15] MEDS ORDERED: OXYC-188 PO (14:16)
[2016-11-15] MEDS ORDERED: CYCL10TA9 PO (14:17)
[2016-11-15 14:27] VITALS: BP 132/80
--- OUTSIDE RECORDS SUMMARY | 2016-12-04 04:14 | XMS REPORT | Continuity of Care Document ---
Author Author [facility] Organization [facility] Address Unknown Phone Unavailable Allergies Active Description Code Type Severity Reaction Onset Reported/Identified Relationship to Patient Clinical Status Yes No Known Drug Allergies [id number] Drug Allergy Unknown N/ A 05/09/2008 Medications Problems Date Dx Coded Attending Type Code Diagnosis Diagnosed By 02/28/2010 Ot 459.81 02/28/2010 Ot V58.81 06/13/2010 Ot 459.81 06/13/2010 Ot V58.81 09/12/2010 Ot 459.81 09/12/2010 Ot V58.81 01/02/2011 Ot 250.00 DIAB LINUS WO COMPL, TYPE II OR UNSPEC TY 01/02/2011 Ot 459.81 VENOUS INSUFFICIENCY NOS 01/02/2011 Ot V58.81 FIT/ADJ VASCULAR CATHETER 03/27/2011 Ot 250.60 DIAB W NEURO MANIFEST, TYPE II OR UNSPEC 03/27/2011 Ot 357.2 NEUROPATHY IN DIABETES 03/27/2011 Ot 401.9 HYPERTENSION NOS 03/27/2011 Ot 440.21 ATHEROSCL [place] ARTER EXTREM W INTERMIT 03/27/2011 Ot 440.4 CHRONIC TOTAL OCCLUSION OF ARTERY OF THE 03/27/2011 Ot 440.8 ATHEROSCLEROSIS NEC 03/27/2011 Ot 496 CHR AIRWAY OBSTRUCT NEC 03/27/2011 Ot V15.82 HISTORY OF TOBACCO USE 06/11/2011 Ot 250.00 DIAB LINUS WO COMPL, TYPE II OR UNSPEC TY 06/11/2011 Ot 401.9 HYPERTENSION NOS 06/11/2011 Ot 996.74 OTH COMPL DUE TO OTH VASCULAR DEVICE,IMP 06/11/2011 Ot 998.12 HEMATOMA COMPLIC A PROC 06/11/2011 Ot V58.67 LONG-TERM (CURRENT) USE OF INSULIN 06/12/2011 Ot 250.00 DIAB LINUS WO COMPL, TYPE II OR UNSPEC TY 06/12/2011 Ot 459.81 VENOUS INSUFFICIENCY NOS 06/12/2011 Ot V58.81 FIT/ADJ VASCULAR CATHETER 01/18/2012 Ot 459.81 VENOUS INSUFFICIENCY NOS 01/18/2012 Ot V58.81 FIT/ADJ VASCULAR CATHETER 05/09/2012 Ot 459.81 VENOUS INSUFFICIENCY NOS 05/09/2012 Ot V58.81 FIT/ADJ VASCULAR CATHETER 07/03/2012 Ot 276.8 HYPOPOTASSEMIA 07/03/2012 Ot 285.1 AC POSTHEMORRHAG ANEMIA 07/03/2012 Ot 553.21 INCISIONAL HERNIA 07/03/2012 Ot 706.2 SEBACEOUS CYST 07/03/2012 Ot 998.12 HEMATOMA COMPLIC A PROC 07/03/2012 Ot E878.8 ABN REACT-SURG PROC NEC 07/06/2012 Ot 250.00 DIAB LINUS WO COMPL, TYPE II OR UNSPEC TY 07/06/2012 Ot 285.9 ANEMIA NOS 07/06/2012 Ot 338.29 OTHER CHRONIC PAIN 07/06/2012 Ot 401.9 HYPERTENSION NOS 07/06/2012 Ot 998.12 HEMATOMA COMPLIC A PROC 07/06/2012 Ot V03.82 PROPHYLACTIC VACC AGAINST STREPTOCOCCUS 07/06/2012 Ot V04.81 ND FOR PROPHYLACTIC VACCIN AND INOCULATI 07/06/2012 Ot V58.67 LONG-TERM (CURRENT) USE OF INSULIN 07/13/2012 Ot 998.12 HEMATOMA COMPLIC A PROC 11/08/2012 Ot 250.00 DIAB LINUS WO COMPL, TYPE II OR UNSPEC TY 11/08/2012 Ot 401.9 HYPERTENSION NOS 11/08/2012 Ot 440.20 ATHEROSCLEROSIS [place] ARTERIES EXTREMIT 11/08/2012 Ot 453.6 VENOUS EMBOLISM THROMBOSIS OF SUPERFIC 11/08/2012 Ot 996.74 OTH COMPL DUE TO OTH VASCULAR DEVICE,IMP 11/08/2012 Ot V12.54 PERSONAL HX OF TIA, CEREBRAL INFARCTION 01/17/2013 ADIN ONEAL MD Ot V58.81 FIT/ADJ VASCULAR CATHETER 07/17/2013 ADIN ONEAL MD Ot V58.81 FIT/ADJ VASCULAR CATHETER 09/13/2013 SUPA WHARTON, SCOTT Garcia Ot 250.00 DIAB LINUS WO COMPL, TYPE II OR UNSPEC TY 09/13/2013 SUPA WHARTON, SCOTT Garcia Ot 401.9 HYPERTENSION NOS 09/13/2013 SUPA WHARTON, SCOTT Garcia Ot 440.20 ATHEROSCLEROSIS [place] ARTERIES EXTREMIT 09/13/2013 SCOTT COWART MD Ot 442.3 LOWER EXTREMITY ANEURYSM 09/13/2013 SCOTT COWART MD Ot V12.54 PERSONAL HX OF TIA, CEREBRAL INFARCTION 09/13/2013 SCOTT COWART MD Ot V15.82 HISTORY OF TOBACCO USE 09/13/2013 SCOTT COWART MD Ot V58.67 LONG-TERM (CURRENT) USE OF INSULIN 09/13/2013 SCOTT COWART MD Ot V58.69 OTH MED,LT,CURRENT USE 10/08/2013 ADIN ONEAL MD Ot V58.81 FIT/ADJ VASCULAR CATHETER 02/17/2014 ADIN ONEAL MD Ot V58.81 FIT/ADJ VASCULAR CATHETER 04/12/2014 SCOTT COWART MD Ot 250.00 DIAB LINUS WO COMPL, TYPE II OR UNSPEC TY 04/12/2014 SCOTT COWART MD Ot 401.9 HYPERTENSION NOS 04/12/2014 SCOTT COWART MD Ot 444.22 LOWER EXTREMITY EMBOLISM 04/12/2014 SCOTT COWART MD Ot V12.54 PERSONAL HX OF TIA, CEREBRAL INFARCTION 04/20/2014 CELIA ELVIN HESSA K Ot 250.00 DIAB LINUS WO COMPL, TYPE II OR UNSPEC TY 04/20/2014 CELIA HESS CARSON K Ot 338.18 OTHER ACUTE POSTOPERATIVE PAIN 04/20/2014 ELVIN YANG DOA K Ot 401.9 HYPERTENSION NOS 04/20/2014 ELVIN YANG DOA K Ot 729.81 SWELLING OF LIMB 04/20/2014 ELVIN YANG DOA K Ot 782.3 EDEMA 04/20/2014 CELIA HESS CARSON K Ot 998.9 SURGICAL COMPLICAT NOS 04/20/2014 ELVIN YANG DOA K Ot V58.67 LONG-TERM (CURRENT) USE OF INSULIN 04/20/2014 ELVIN YANG DOA K Ot V58.69 OTH MED,LT,CURRENT USE 05/20/2014 ADIN ONEAL MD Ot 250.00 DIAB LINUS WO COMPL, TYPE II OR UNSPEC TY 05/20/2014 ADIN ONEAL MD Ot V58.81 FIT/ADJ VASCULAR CATHETER 05/24/2014 SCOTT COWART MD Ot 250.00 DIAB LINUS WO COMPL, TYPE II OR UNSPEC TY 05/24/2014 SCOTT COWART MD Ot 401.9 HYPERTENSION NOS 05/24/2014 SCOTT COWART MD Ot 440.20 ATHEROSCLEROSIS [place] ARTERIES EXTREMIT 05/24/2014 SCOTT COWART MD Ot 444.22 LOWER EXTREMITY EMBOLISM 05/24/2014 SUPA WHARTON, SCOTT Garcia Ot V15.82 HISTORY OF TOBACCO USE 05/24/2014 SCOTT COWART MD Ot V58.67 LONG-TERM (CURRENT) USE OF INSULIN 05/24/2014 SCOTT COWART MD Ot V58.69 OTH MED,LT,CURRENT USE 08/15/2014 ADIN ONEAL MD Ot 250.00 08/15/2014 ADIN ONEAL MD Ot V58.81 08/15/2014 ADIN ONEAL MD Ot 250.00 08/15/2014 ADIN ONEAL MD Ot V58.81 08/15/2014 ADIN ONEAL MD Ot 250.00 08/15/2014 ADIN ONEAL MD Ot V58.81 08/15/2014 ADIN ONEAL MD Ot 250.00 08/15/2014 ADIN ONEAL MD Ot V58.81 08/15/2014 ADIN ONEAL MD Ot 250.00 08/15/2014 ADIN ONEAL MD Ot V58.81 08/18/2014 ADIN NOEAL MD Ot 250.00 08/18/2014 ADIN ONEAL MD Ot V58.81 08/18/2014 ADIN ONEAL MD Ot V58.81 09/01/2014 ADIN ONEAL MD Ot V58.81 09/01/2014 ADIN ONEAL MD Ot V58.81 09/18/2014 ADIN ONEAL MD Ot V58.81 10/03/2014 ADIN ONEAL MD Ot V58.81 11/13/2014 ADIN ONEAL MD Ot V58.81 FIT/ADJ VASCULAR CATHETER 01/09/2015 ADIN ONEAL MD Ot 250.00 01/23/2015 ADIN ONEAL MD Ot V58.81 01/23/2015 ADIN ONEAL MD Ot V58.81 01/23/2015 ADIN ONEAL MD Ot V58.81 01/23/2015 ADIN ONEAL MD Ot V58.81 01/23/2015 ADIN ONEAL MD Ot V58.81 01/26/2015 ADIN ONEAL MD Ot V58.81 01/26/2015 ADIN ONEAL MD Ot V58.81 01/27/2015 ADIN ONEAL MD Ot 250.00 03/12/2015 ADIN ONEAL MD Ot V58.81 03/27/2015 ADIN ONEAL MD Ot V58.81 03/27/2015 ADIN ONEAL MD Ot V58.81 03/27/2015 ADIN ONEAL MD Ot V58.81 04/03/2015 ADIN ONEAL MD Ot V58.81 04/23/2015 ADIN ONEAL MD Ot V58.81 FIT/ADJ VASCULAR CATHETER 06/09/2015 ADIN ONEAL MD Ot V58.81 06/10/2015 ADIN ONEAL MD Ot V58.81 06/12/2015 JERSON WHARTON, YANI Love Ot D12.2 BENIGN NEOPLASM OF ASCENDING COLON 06/12/2015 YANI ARTHUR MD Ot Z12.11 ENCOUNTER FOR SCREENING FOR MALIGNANT NE 07/21/2015 ADIN ONEAL MD Ot V58.81 07/21/2015 ADIN ONEAL MD Ot Z45.2 07/28/2015 ADIN ONEAL MD Ot V58.81 07/28/2015 ADIN ONEAL MD Ot Z45.2 07/31/2015 Ot 250.00 07/31/2015 Ot 211.3 07/31/2015 Ot 401.9 07/31/2015 Ot 553.20 07/31/2015 Ot 780.39 07/31/2015 Ot V12.79 07/31/2015 Ot V58.69 07/31/2015 Ot V67.09 07/31/2015 Ot 440.20 07/31/2015 Ot 250.00 07/31/2015 Ot 250.00 07/31/2015 Ot 459.81 07/31/2015 Ot V58.81 07/31/2015 Ot 553.21 07/31/2015 Ot V72.63 07/31/2015 Ot V74.8 07/31/2015 Ot 285.9 07/31/2015 Ot 790.4 07/31/2015 Ot 682.9 07/31/2015 ADIN ONEAL MD Ot 250.00 07/31/2015 KIMMY WHARTON, ADIN Hagan Ot 250.00 07/31/2015 Ot V58.81 07/31/2015 ADIN ONEAL MD Ot 250.00 07/31/2015 ADIN ONEAL MD Ot V58.81 07/31/2015 ADIN ONEAL MD Ot Z45.2 07/31/2015 JERSON WHARTON, YANI Love Ot Z01.818 07/31/2015 YANI ARTHUR MD Ot D12.6 07/31/2015 YANI ARTHUR MD Ot Z01.818 07/31/2015 YANI ARTHUR MD Ot D12.3 BENIGN NEOPLASM OF TRANSVERSE COLON 07/31/2015 JERSON WHARTON, YANI Love Ot K57.90 DVRTCLOS OF INTEST, PART UNSP, W/O PERF 07/31/2015 YANI ARTHUR MD Ot Z09 ENCNTR FOR F/U EXAM AFT TRTMT FOR COND O 07/31/2015 YANI ARTHUR MD Ot Z86.010 PERSONAL HISTORY OF COLONIC POLYPS 09/07/2015 ADIN ONEAL MD Ot Z45.2 ENCOUNTER FOR ADJUSTMENT AND MANAGEMENT 10/06/2015 ADIN ONEAL MD Ot V58.81 10/06/2015 ADIN ONEAL MD Ot Z45.2 11/05/2015 ADIN ONEAL MD Ot V58.81 11/05/2015 ADIN ONEAL MD Ot Z45.2 12/07/2015 ADIN ONEAL MD Ot Z45.2 ENCOUNTER FOR ADJUSTMENT AND MANAGEMENT 12/09/2015 ADIN ONEAL MD Ot Z45.2 ENCOUNTER FOR ADJUSTMENT AND MANAGEMENT 12/23/2015 ADIN ONEAL MD Ot Z45.2 ENCOUNTER FOR ADJUSTMENT AND MANAGEMENT 01/04/2016 ADIN ONEAL MD Ot Z45.2 ENCOUNTER FOR ADJUSTMENT AND MANAGEMENT 01/05/2016 ADIN ONEAL MD Ot Z45.2 ENCOUNTER FOR ADJUSTMENT AND MANAGEMENT 01/05/2016 ADIN ONEAL MD Ot Z45.2 ENCOUNTER FOR ADJUSTMENT AND MANAGEMENT 01/05/2016 ADIN ONEAL MD Ot Z45.2 ENCOUNTER FOR ADJUSTMENT AND MANAGEMENT 03/16/2016 ADIN ONEAL MD Ot Z45.2 ENCOUNTER FOR ADJUSTMENT AND MANAGEMENT 03/25/2016 ADIN ONEAL MD Ot Z45.2 ENCOUNTER FOR ADJUSTMENT AND MANAGEMENT 04/04/2016 ADIN ONEAL MD Ot I87.2 VENOUS INSUFFICIENCY (CHRONIC) (PERIPHER 04/04/2016 ADIN ONEAL MD Ot Z45.2 ENCOUNTER FOR ADJUSTMENT AND MANAGEMENT 04/05/2016 ADIN ONEAL MD Ot I87.2 VENOUS INSUFFICIENCY (CHRONIC) (PERIPHER 04/05/2016 ADIN ONEAL MD Ot Z45.2 ENCOUNTER FOR ADJUSTMENT AND MANAGEMENT 04/13/2016 ADIN ONEAL MD Ot I87.2 VENOUS INSUFFICIENCY (CHRONIC) (PERIPHER 04/13/2016 ADIN ONEAL MD Ot Z45.2 ENCOUNTER FOR ADJUSTMENT AND MANAGEMENT 04/13/2016 ADIN ONEAL MD Ot I87.2 VENOUS INSUFFICIENCY (CHRONIC) (PERIPHER 04/13/2016 ADIN ONEAL MD Ot Z45.2 ENCOUNTER FOR ADJUSTMENT AND MANAGEMENT 05/17/2016 ADIN ONEAL MD Ot I87.2 VENOUS INSUFFICIENCY (CHRONIC) (PERIPHER 05/17/2016 ADIN ONEAL MD Ot Z45.2 ENCOUNTER FOR ADJUSTMENT AND MANAGEMENT 05/18/2016 Ot 211.3 BENIGN NEOPLASM LG BOWEL 05/18/2016 Ot 401.9 HYPERTENSION NOS 05/18/2016 Ot 553.20 VENTRAL HERNIA NOS 05/18/2016 Ot 780.39 OTHER CONVULSIONS 05/18/2016 Ot V12.79 PERSONAL HISTORY OTH SPEC DIGESTIVE SYST 05/18/2016 Ot V58.69 OTH MED,LT,CURRENT USE 05/18/2016 Ot V67.09 SURGERY FOLLOW-UP, OTHER SURGERY 05/18/2016 Ot 440.20 ATHEROSCLEROSIS [place] ARTERIES EXTREMIT 05/18/2016 Ot 250.00 DIAB LINUS WO COMPL, TYPE II OR UNSPEC TY 05/18/2016 Ot 250.00 DIAB LINUS WO COMPL, TYPE II OR UNSPEC TY 05/18/2016 Ot 459.81 VENOUS INSUFFICIENCY NOS 05/18/2016 Ot V58.81 FIT/ADJ VASCULAR CATHETER 05/18/2016 Ot 553.21 INCISIONAL HERNIA 05/18/2016 Ot V72.63 PRE-PROCEDURAL LABORATORY EXAMINATION 05/18/2016 Ot V74.8 SCREEN-BACTERIAL DIS NEC 05/18/2016 Ot 285.9 ANEMIA NOS 05/18/2016 Ot 790.4 ELEV TRANSAMINASE/LDH 05/18/2016 Ot 682.9 CELLULITIS NOS 05/18/2016 ADIN ONEAL MD Ot 250.00 DIAB LINUS WO COMPL, TYPE II OR UNSPEC TY 05/18/2016 ADIN ONEAL MD Ot 250.00 DIAB LINUS WO COMPL, TYPE II OR UNSPEC TY 05/18/2016 Ot V58.81 FIT/ADJ VASCULAR CATHETER 05/18/2016 ADIN ONEAL MD Ot 250.00 DIAB LINUS WO COMPL, TYPE II OR UNSPEC TY 05/18/2016 JERSON WHARTON, YANI Love Ot Z01.818 ENCOUNTER FOR OTHER PREPROCEDURAL EXAMIN 05/18/2016 JERSON WHARTON, YANI Love Ot D12.6 BENIGN NEOPLASM OF COLON, UNSPECIFIED 05/18/2016 JERSON WHARTON, YANI Love Ot Z01.818 ENCOUNTER FOR OTHER PREPROCEDURAL EXAMIN 05/18/2016 ADIN ONEAL MD Ot I87.2 VENOUS INSUFFICIENCY (CHRONIC) (PERIPHER 05/18/2016 ADIN ONEAL MD Ot Z45.2 ENCOUNTER FOR ADJUSTMENT AND MANAGEMENT 05/18/2016 ORENDER DO, SUSAN S Ot E11.9 TYPE 2 DIABETES MELLITUS WITHOUT COMPLIC 05/18/2016 ORENDER DO, SUSAN S Ot E78.2 MIXED HYPERLIPIDEMIA 05/18/2016 ORENDER DO, SUSAN S Ot E11.9 TYPE 2 DIABETES MELLITUS WITHOUT COMPLIC 05/18/2016 ORENDER DO, SUSAN S Ot E78.2 MIXED HYPERLIPIDEMIA 05/18/2016 ORENDER DO, SUSAN S Ot E11.9 TYPE 2 DIABETES MELLITUS WITHOUT COMPLIC 05/18/2016 ORENDER DO, SUSAN S Ot E78.2 MIXED HYPERLIPIDEMIA 05/19/2016 ORENDER DO, SUSAN S Ot E11.9 TYPE 2 DIABETES MELLITUS WITHOUT COMPLIC 05/19/2016 ORENDER DO, SUSAN S Ot E78.2 MIXED HYPERLIPIDEMIA 05/19/2016 ORENDER DO, SUSAN S Ot E11.9 TYPE 2 DIABETES MELLITUS WITHOUT COMPLIC 05/19/2016 ORENDER DO, SUSAN S Ot E78.2 MIXED HYPERLIPIDEMIA 05/19/2016 ORENDER DO, SUSAN S Ot E11.9 TYPE 2 DIABETES MELLITUS WITHOUT COMPLIC 05/19/2016 ORENDER DO, SUSAN S Ot E78.2 MIXED HYPERLIPIDEMIA 05/19/2016 SUSAN HURST DO S Ot Z12.5 ENCOUNTER FOR SCREENING FOR MALIGNANT NE 05/19/2016 SUSAN HURST DO Ot Z13.6 ENCOUNTER FOR SCREENING FOR CARDIOVASCUL 05/26/2016 ADIN ONEAL MD Ot I87.2 VENOUS INSUFFICIENCY (CHRONIC) (PERIPHER 05/26/2016 ADIN ONEAL MD Ot Z45.2 ENCOUNTER FOR ADJUSTMENT AND MANAGEMENT 07/12/2016 ADIN ONEAL MD Ot I87.2 VENOUS INSUFFICIENCY (CHRONIC) (PERIPHER 07/12/2016 ADIN ONEAL MD Ot Z45.2 ENCOUNTER FOR ADJUSTMENT AND MANAGEMENT 07/13/2016 ADIN ONEAL MD Ot I87.2 VENOUS INSUFFICIENCY (CHRONIC) (PERIPHER 07/13/2016 ADIN ONEAL MD Ot Z45.2 ENCOUNTER FOR ADJUSTMENT AND MANAGEMENT 07/18/2016 ADIN ONEAL MD Ot I87.2 VENOUS INSUFFICIENCY (CHRONIC) (PERIPHER 07/18/2016 ADIN ONEAL MD Ot Z45.2 ENCOUNTER FOR ADJUSTMENT AND MANAGEMENT 08/09/2016 ADIN ONEAL MD Ot I87.2 VENOUS INSUFFICIENCY (CHRONIC) (PERIPHER 08/09/2016 ADIN ONEAL MD Ot Z45.2 ENCOUNTER FOR ADJUSTMENT AND MANAGEMENT 08/09/2016 ADIN ONEAL MD Ot I87.2 VENOUS INSUFFICIENCY (CHRONIC) (PERIPHER 08/09/2016 ADIN ONEAL MD Ot Z45.2 ENCOUNTER FOR ADJUSTMENT AND MANAGEMENT 08/09/2016 ADIN ONEAL MD Ot I87.2 VENOUS INSUFFICIENCY (CHRONIC) (PERIPHER 08/09/2016 ADIN ONEAL MD Ot Z45.2 ENCOUNTER FOR ADJUSTMENT AND MANAGEMENT 08/30/2016 ADIN ONEAL MD Ot I87.2 VENOUS INSUFFICIENCY (CHRONIC) (PERIPHER 08/30/2016 ADIN ONEAL MD Ot Z45.2 ENCOUNTER FOR ADJUSTMENT AND MANAGEMENT 09/06/2016 ADIN ONEAL MD Ot I87.2 VENOUS INSUFFICIENCY (CHRONIC) (PERIPHER 09/06/2016 ADIN ONEAL MD Ot Z45.2 ENCOUNTER FOR ADJUSTMENT AND MANAGEMENT 09/06/2016 SUSAN HURST DO Ot Z45.2 ENCOUNTER FOR ADJUSTMENT AND MANAGEMENT 09/08/2016 ARIS HESS, SUSAN S Ot Z45.2 ENCOUNTER FOR ADJUSTMENT AND MANAGEMENT 09/30/2016 ADIN ONEAL MD Ot I87.2 VENOUS INSUFFICIENCY (CHRONIC) (PERIPHER 09/30/2016 ADIN ONEAL MD Ot Z45.2 ENCOUNTER FOR ADJUSTMENT AND MANAGEMENT 10/12/2016 SUSAN HURST DO S Ot Z45.2 ENCOUNTER FOR ADJUSTMENT AND MANAGEMENT 10/13/2016 ADIN ONEAL MD Ot I87.2 VENOUS INSUFFICIENCY (CHRONIC) (PERIPHER 10/13/2016 ADIN ONEAL MD Ot Z45.2 ENCOUNTER FOR ADJUSTMENT AND MANAGEMENT 10/24/2016 SUSAN HURST DO S Ot Z45.2 ENCOUNTER FOR ADJUSTMENT AND MANAGEMENT 10/27/2016 SUSAN HURST DO S Ot Z45.2 ENCOUNTER FOR ADJUSTMENT AND MANAGEMENT 11/16/2016 BELLE BROUSSARD Ot E11.9 TYPE 2 DIABETES MELLITUS WITHOUT COMPLIC 11/16/2016 BELLE BROUSSARD Ot F17.210 NICOTINE DEPENDENCE, CIGARETTES, UNCOMPL 11/16/2016 BELLE BROUSSARD Ot K76.0 FATTY (CHANGE OF) LIVER, NOT ELSEWHERE C 11/16/2016 BELLE BROUSSARD Ot M54.5 LOW BACK PAIN 11/16/2016 BELLE BROUSSARD Ot N20.0 CALCULUS OF KIDNEY 11/16/2016 BELLE BROUSSARD Ot R91.1 SOLITARY PULMONARY NODULE 11/16/2016 BELLE BROUSSARD Ot Z79.4 HEAD ESTHETICIAN (CURRENT) USE OF INSULIN 11/16/2016 BELLE BROUSSARD Ot Z79.899 OTHER HEAD ESTHETICIAN (CURRENT) DRUG THERAPY 11/17/2016 SUSAN HURST DO S Ot Z45.2 ENCOUNTER FOR ADJUSTMENT AND MANAGEMENT 11/21/2016 BELLE BROUSSARD Ot E11.9 TYPE 2 DIABETES MELLITUS WITHOUT COMPLIC 11/21/2016 BELLE BROUSSARD Ot F17.210 NICOTINE DEPENDENCE, CIGARETTES, UNCOMPL 11/21/2016 BELLE BROUSSARD Ot K76.0 FATTY (CHANGE OF) LIVER, NOT ELSEWHERE C 11/21/2016 BELLE BROUSSARD Ot M54.5 LOW BACK PAIN 11/21/2016 BELLE BROUSSARD Ot N20.0 CALCULUS OF KIDNEY 11/21/2016 BELLE BROUSSARD Ot R91.1 SOLITARY PULMONARY NODULE 11/21/2016 BELLE BROUSSARD Ot Z79.4 SKILLED NURSING (CURRENT) USE OF INSULIN 11/21/2016 BELLE BROUSSARD Ot Z79.899 OTHER SKILLED NURSING (CURRENT) DRUG THERAPY Procedures Code Description Performed By Performed On 86.07 07/10/2009 88.42 03/24/2011 88.48 03/24/2011 39.29 03/25/2011 88.42 06/09/2011 88.48 06/09/2011 99.10 06/09/2011 00.40 06/10/2011 00.45 06/10/2011 39.50 06/10/2011 39.90 06/10/2011 53.61 06/22/2012 86.3 06/22/2012 00.41 11/06/2012 38.08 11/06/2012 39.50 11/06/2012 88.42 11/06/2012 88.48 11/06/2012 99.10 11/06/2012 88.48 11/07/2012 88.42 04/10/2014 88.48 04/10/2014 99.10 04/10/2014 Results Test Result Range Complete blood count (CBC) with automated white blood cell (WBC) differential - 05/18/16 13:35 Blood leukocytes automated count (number/volume) 6.2 10*3/ uL 4.3-11.0 Blood erythrocytes automated count (number/volume) 5.38 10*6 /uL 4.35-5.85 Venous blood hemoglobin measurement (mass/volume) 17.7 g/dL 13.3-17.7 Blood hematocrit (volume fraction) 51 % 40-54 Automated erythrocyte mean corpuscular volume 94 [foz_us] 80-99 Automated erythrocyte mean corpuscular hemoglobin (mass per erythrocyte) 33 pg 25-34 Automated erythrocyte mean corpuscular hemoglobin concentration measurement ( mass/volume) 35 g/dL 32-36 Automated erythrocyte distribution width ratio 13.9 % 10.0-14.5 Automated blood platelet count (count/volume) 248 10*3/uL 130-400 Automated blood platelet mean volume measurement 10.7 [foz_ us] 7.4-10.4 Automated blood neutrophils/100 leukocytes 64 % 42-75 Automated blood lymphocytes/100 leukocytes 22 % 12-44 Blood monocytes/100 leukocytes 10 % 0-12 Automated blood eosinophils/100 leukocytes 3 % 0-10 Automated blood basophils/100 leukocytes 1 % 0-10 Blood neutrophils automated count (number/volume) 4.0 10*3 1.8-7.8 Blood lymphocytes automated count (number/volume) 1.3 10*3 1.0-4.0 Blood monocytes automated count (number/volume) 0.6 10*3 0.0-1.0 Automated eosinophil count 0.2 10*3/uL 0.0-0.3 Automated blood basophil count (count/volume) 0.1 10*3/uL 0.0-0.1 Comprehensive metabolic panel - 05/18/16 13:35 Serum or plasma sodium measurement (moles/volume) 138 mmol/ L 135-145 Serum or plasma potassium measurement (moles/volume) 4.2 mmol/L 3.6-5.0 Serum or plasma chloride measurement (moles/volume) 106 mmol /L 98-107 Carbon dioxide 21 mmol/L 21-32 Serum or plasma anion gap determination (moles/volume) 11 mmol/L 5-14 Serum or plasma urea nitrogen measurement (mass/volume) 10 mg/dL 7-18 Serum or plasma creatinine measurement (mass/volume) 1.06 mg /dL 0.60-1.30 Serum or plasma urea nitrogen/creatinine mass ratio 9 NRG Serum or plasma creatinine measurement with calculation of estimated glomerular filtration rate > NRG Serum or plasma glucose measurement (mass/volume) 237 mg/dL 70-105 Serum or plasma calcium measurement (mass/volume) 9.5 mg/dL 8.5-10.1 Serum or plasma total bilirubin measurement (mass/volume) 0.5 mg/dL 0.1-1.0 Serum or plasma alkaline phosphatase measurement (enzymatic activity/volume) 146 U/L 40-136 Serum or plasma aspartate aminotransferase measurement (enzymatic activity/ volume) 42 U/L 5-34 Serum or plasma alanine aminotransferase measurement (enzymatic activity/volume ) 82 U/L 0-55 Serum or plasma protein measurement (mass/volume) 7.0 g/dL 6.4-8.2 Serum or plasma albumin measurement (mass/volume) 4.0 g/dL 3.2-4.5 Lipid 1996 panel - 05/18/16 13:35 Serum or plasma triglyceride measurement (mass/volume) 378 mg/dL <150 Serum or plasma cholesterol measurement (mass/volume) 193 mg /dL < 200 Serum or plasma cholesterol in HDL measurement (mass/volume) 36 mg/dL 40-60 Cholesterol in LDL [mass/volume] in serum or plasma by direct assay 112 mg/dL 1-129 Serum or plasma cholesterol in VLDL measurement (mass/volume) 76 mg/dL 5-40 THYROID STIMULATING HORMONE - 05/18/16 13:35 THYROID STIMULATING HORMONE 2.19 u[iU]/mL 0.35-4.94 Hemoglobin A1c - 05/18/16 13:35 Hemoglobin A1c 8.5 % 4.5-6.2 Semen free prostate specific antigen (PSA) measurement (units/volume) - 13:35 Prostate specific ag [mass/volume] in serum or plasma 0.46 % 0.00-4.00 Urine microalbumin measurement by test strip (mass/volume) - 05/19/16 12:00 Urine creatinine measurement (mass/volume) 95 % NRG Microalbumin [mass/volume] in urine 17.8 % 0.0-20.0 Microalbumin/creatinine [ratio] in urine 18.7 mg/g{Cre} 0.0-30.0 Complete urinalysis with reflex to culture - 11/15/16 12:43 Urine color determination YELLOW NRG Urine clarity determination CLEAR NRG Urine pH measurement by test strip 6 5- 9 Specific gravity of urine by test strip 1.020 1.016-1.022 Urine protein assay by test strip, semi-quantitative 2+ NEGATIVE Urine glucose detection by automated test strip 1+ NEGATIVE Erythrocytes detection in urine sediment by light microscopy NEGATIVE NEGATIVE Urine ketones detection by automated test strip NEGATIVE NEGATIVE Urine nitrite detection by test strip NEGATIVE NEGATIVE Urine total bilirubin detection by test strip NEGATIVE NEGATIVE Urine urobilinogen measurement by automated test strip (mass/volume) 8 mg/dL NORMAL Urine leukocyte esterase detection by dipstick 1+ NEGATIVE Automated urine sediment erythrocyte count by microscopy (number/high power field) NONE NRG Automated urine sediment leukocyte count by microscopy (number/high power field ) [HPF] NRG Bacteria detection in urine sediment by light microscopy NEGATIVE NRG Squamous epithelial cells detection in urine sediment by light microscopy RARE NRG Crystals detection in urine sediment by light microscopy NONE NRG Casts detection in urine sediment by light microscopy NONE NRG Mucus detection in urine sediment by light microscopy NEGATIVE NRG Complete urinalysis with reflex to culture NO NRG Encounters ACCT No. Visit Date/Time Discharge Status Pt. Type Provider Facility Loc./Unit Complaint [id number] 11/15/2016 11:11:00 2016 14:27:00 DIS Outpatient BELLE BROUSSARD [facility] ER RIGHT LOWER BACK PAIN [id number] 09/06/2016 13:28:00 2016 13:30:00 DIS Outpatient SUSAN HURST DO [facility] PORT FLUSH [id number] 09/06/2016 13:11:00 2016 13:30:00 DIS Outpatient ADIN ONEAL MD [facility] VENOUSACESS [id number] 04/13/2016 12:58:00 2015 00:01:00 DIS Outpatient ADIN ONEAL MD [facility] VENOUSACESS [id number] 05/19/2016 14:21:00 2015 14:23:00 DIS Outpatient SUASN HURST DO [facility] ESS HYPERTEN,DIAB,PRO CAN SCREEN,HEAR DIS SCREEN [id number] 03/16/2016 12:51:00 2015 00:01:00 DIS Outpatient ADIN ONEAL MD [facility] VENOUSACESS [id number] 12/07/2015 12:50:00 2015 00:01:00 DIS Outpatient ADIN ONEAL MD [facility] VENOUSACESS [id number] 06/09/2015 13:11:00 2015 00:01:00 DIS Outpatient ADIN ONEAL MD [facility] VENOUSACESS [id number] 07/31/2015 06:57:00 2014 09:00:00 DIS Outpatient JERSON WHARTON, YANI Love [facility] COLONIC ADENOMA HIGH GRADE DYSLASIA [id number] 06/12/2015 06:55:00 2014 10:00:00 DIS Outpatient YANI ARTHUR MD [facility] SCREENING [id number] 06/09/2015 05:41:00 2014 23:59:59 CLS Outpatient YANI ARTHUR MD [facility] PREOP SCREENING [id number] 03/27/2015 13:46:00 2014 00:01:00 DIS Outpatient ADIN ONEAL MD [facility] VENOUSACESS [id number] 08/15/2014 10:11:00 2014 00:01:00 DIS Outpatient ADIN ONEAL MD [facility] VENOUSACESS [id number] 11/11/2014 12:50:00 2014 23:59:59 CLS Outpatient ADIN ONEAL MD [facility] DIABETES [id number] 05/22/2014 14:56:00 2013 11:55:00 DIS Outpatient SCOTT COWART MD [facility] CATH THROMBOSIS LEFT SFA [id number] 02/19/2014 13:42:00 2013 00:01:00 DIS Outpatient ADIN ONEAL MD [facility] VENOUSACESS [id number] 04/20/2014 12:45:00 2013 15:44:00 DIS Emergency CELIA DOCARSON K [facility] ER SWOLLEN CATH SITE [id number] 04/10/2014 10:50:00 2013 10:10:00 DIS Inpatient SCOTT COWART MD [facility] CSD ASOD,LEG PAIN [id number] 11/19/2013 12:41:00 2013 00:01:00 DIS Outpatient ADIN ONEAL MD [facility] VENOUSACESS [id number] 07/10/2013 11:03:00 2013 00:01:00 DIS Outpatient ADIN ONEAL MD [facility] VENOUSACESS [id number] 09/12/2013 06:53:00 2013 11:40:00 DIS Outpatient SUPA WHARTON, SCOTT S [facility] CATH ASOD,LEG PAIN [id number] 06/26/2013 14:00:00 2012 00:01:00 DIS Outpatient ADIN ONEAL MD [facility] ONC [id number] 04/18/2013 14:38:00 2012 23:59:59 CLS Outpatient ADIN ONEAL MD [facility] LAB [id number] 01/16/2013 13:16:00 2012 00:01:00 DIS Outpatient ADIN ONEAL MD [facility] ONC [id number] 01/16/2013 13:18:00 2012 23:59:59 CLS Outpatient ADIN ONEAL MD [facility] LAB [id number] 10/25/2016 13:09:00 PEN Preadmit SUSAN HURST DO [facility] PORT FLUSH [id number] 10/25/2016 12:49:00 ACT Outpatient SUSAN HURST DO S [facility] VENOUSACESS [id number] 07/31/2015 06:56:00 Document Registration [id number] 07/31/2015 06:56:00 Document Registration [id number] 07/29/2015 05:40:00 ACT Outpatient YANI ARTHUR MD Via [facility] PREOP COLONIC ADENOMA WITH HIGH GRADE DYSPLASIA [id number] 07/18/2013 00:00:00 Document Registration [id number] 11/06/2012 13:00:00 Document Registration [id number] 07/23/2012 13:30:00 Document Registration [id number] 07/16/2012 14:19:00 Document Registration [id number] 07/13/2012 15:01:00 Document Registration [id number] 07/13/2012 13:07:00 Document Registration [id number] 07/03/2012 18:04:00 Document Registration [id number] 06/22/2012 10:05:00 Document Registration [id number] 06/19/2012 12:30:00 Document Registration [id number] 04/10/2012 14:04:00 Document Registration [id number] 12/12/2011 08:59:00 Document Registration [id number] 08/09/2011 14:14:00 Document Registration [id number] 08/09/2011 14:08:00 Document Registration [id number] 06/10/2011 11:36:00 Document Registration [id number] 05/26/2011 12:50:00 Document Registration [id number] 03/24/2011 12:04:00 Document Registration [id number] 03/03/2011 12:57:00 Document Registration [id number] 01/10/2011 07:51:00 Document Registration [id number] 11/24/2010 09:48:00 Document Registration [id number] 11/24/2010 09:03:00 Document Registration [id number] 08/09/2010 10:39:00 Document Registration [id number] 05/03/2010 10:05:00 Document Registration [id number] 11/30/2009 10:12:00 Document Registration
== END 2016-11-15 14:27 | disposition home or self-care (01) ==
LOC: EDUNIT# 11:09 → ER 11:11
DX: M54.5 Low back pain (principal); N20.0 Calculus of kidney; E11.9 Type 2 diabetes mellitus without complications; R91.1 Solitary pulmonary nodule; K76.0 Fatty (change of) liver, not elsewhere classified; F17.210 Nicotine dependence, cigarettes, uncomplicated; Z79.4 Long term (current) use of insulin; Z79.899 Other long term (current) drug therapy
CPT/HCPCS: 74176; 81000; 99282

== ENCOUNTER 2016-12-06 12:50 | Outpatient (RCR) | payer MEDICARE ==
[~2016-12-06] VITALS: Ht 177.8 cm; Wt 98.9 kg
[~2016-12-06 12:50] MED LIST changes: +CYCL10TA9 PO; +HYOS0.1283 SL; +ONDA8TAB13 PO; +OXYC-188 PO; +TRAM50TA2 PO
[2016-12-06 14:07] VITALS: BP 148/75
== END 2017-03-06 | disposition home or self-care (01) ==
LOC: SDC 12:50
PROVIDERS: ATTEND Family Medicine
DX: Z45.2 Encounter for adjustment and management of vascular access device (principal)
CPT/HCPCS: 96523

== ENCOUNTER → 2017-01-17 | Outpatient (CLI) | payer MEDICARE ==
[2017-01-17 09:03] LABS: BASOPHILS # (AUTO) 0.1 10^3/uL (0.0-0.1); BASOPHILS % (AUTO) 1 % (0-10); EOSINOPHILS # (AUTO) 0.2 10^3/uL (0.0-0.3); EOSINOPHILS % (AUTO) 3 % (0-10); LYMPHOCYTES # (AUTO) 1.1 X 10^3 (1.0-4.0); LYMPHOCYTES % (AUTO) 18 % (12-44); MEAN CORPUSCULAR HEMOGLOBIN 33 PG (25-34); MEAN CORPUSCULAR HGB CONC 34 G/DL (32-36); MEAN CORPUSCULAR VOLUME 95 FL (80-99); MEAN PLATELET VOLUME 10.7 FL (7.4-10.4); MONOCYTES # (AUTO) 0.4 X 10^3 (0.0-1.0); MONOCYTES % (AUTO) 7 % (0-12); NEUTROPHILS # (AUTO) 4.3 X 10^3 (1.8-7.8); NEUTROPHILS % (AUTO) 70 % (42-75); PLATELET COUNT 198 10^3/uL (130-400); RED BLOOD COUNT 5.73 10^6/uL (4.35-5.85); RED CELL DISTRIBUTION WIDTH 14.3 % (10.0-14.5); WHITE BLOOD COUNT 6.1 10^3/uL (4.3-11.0)
[2017-01-17 09:25] LABS: ALANINE AMINOTRANSFERASE 26 U/L (0-55); ALBUMIN 3.9 G/DL (3.2-4.5); ANION GAP 13 MMOL/L (5-14); ASPARTATE AMINO TRANSFERASE 23 U/L (5-34); BILIRUBIN,TOTAL 0.6 MG/DL (0.1-1.0); BLOOD UREA NITROGEN 5 MG/DL (7-18); BUN/CREATININE RATIO 5; CALCIUM 9.5 MG/DL (8.5-10.1); CARBON DIOXIDE 23 MMOL/L (21-32); CHLORIDE 103 MMOL/L (98-107); CHOLESTEROL 184 MG/DL (< 200); DIRECT LDL 95 MG/DL (1-129); GFR ESTIMATED > 60; GLUCOSE 159 MG/DL (70-105); POTASSIUM 3.9 MMOL/L (3.6-5.0); SODIUM 139 MMOL/L (135-145); TOTAL PROTEIN 7.4 G/DL (6.4-8.2); TRIGLYCERIDES 323 MG/DL (<150); VLDL CHOLESTEROL 65 MG/DL (5-40)
[2017-01-17 09:45] LABS: THYROID STIMULATING HORMONE 3.07 UIU/ML (0.35-4.94)
== END ==
LOC: SDC 07:47
PROVIDERS: ATTEND Family Medicine
DX: E11.9 Type 2 diabetes mellitus without complications (principal); I10 Essential (primary) hypertension; I25.10 Atherosclerotic heart disease of native coronary artery without angina pectoris
CPT/HCPCS: 36415; 36591; 80053; 80061; 83036; 84443; 85025

== ENCOUNTER 2017-04-14 13:02 | Outpatient (RCR) | payer MEDICARE ==
[~2017-04-14] VITALS: Ht 177.8 cm; Wt 98.9 kg
[2017-04-14] MEDS ORDERED: CATHETER FLUSH 10 ML SYR IV PRN (13:15)
[2017-04-14 13:47] VITALS: BP 140/78
== END 2017-05-20 | disposition home or self-care (01) ==
LOC: SDC 13:02
PROVIDERS: ATTEND Family Medicine
DX: Z45.2 Encounter for adjustment and management of vascular access device (principal)
CPT/HCPCS: 96523